=== PATIENT | female | born 1970 | race Caucasian/White ===

== ENCOUNTER → 2017-08-07 | Outpatient (CLI) | payer OTHER ==
[~2017-08-07] MED LIST: ATOR40TA78 PO; CHOL100012 PO; FENO48TA5 PO; LEVO137T2 PO; LEVO150T PO; will bring list DOS
== END | disposition home or self-care (01) ==
LOC: CFH 11:07
PROVIDERS: ATTEND Nurse Practitioner
DX: N26.1 Atrophy of kidney (terminal) (principal)
CPT/HCPCS: 76770

== ENCOUNTER → 2018-01-29 | Outpatient (CLI) | payer OTHER | LOC: CFH 07:48 | PROVIDERS: ATTEND Internal Medicine Nephrology | DX: N26.1 Atrophy of kidney (terminal) (principal); N18.3 Chronic kidney disease, stage 3 (moderate); D64.9 Anemia, unspecified; G89.4 Chronic pain syndrome; Z72.0 Tobacco use | CPT/HCPCS: 93975 ==

== ENCOUNTER → 2018-09-03 | Outpatient (CLI) | payer OTHER | END | disposition home or self-care (01) | LOC: CFH 07:51 | PROVIDERS: ATTEND Nurse Practitioner | DX: Z12.31 Encounter for screening mammogram for malignant neoplasm of breast (principal) | CPT/HCPCS: 77067 ==

== ENCOUNTER → 2018-10-08 | Outpatient (CLI) | payer OTHER | END | disposition home or self-care (01) | LOC: CFH 07:42 | PROVIDERS: ATTEND Nurse Practitioner | DX: R92.1 Mammographic calcification found on diagnostic imaging of breast (principal) | CPT/HCPCS: 77065; G0279 ==

== ENCOUNTER → 2021-04-12 | Outpatient (CLI) | payer OTHER ==
[~2021-04-12] MED LIST changes: +FENO48TA10 PO; -FENO48TA5 PO
== END | disposition home or self-care (01) ==
LOC: CFH 12:10
PROVIDERS: ATTEND Nurse Practitioner
DX: Z12.31 Encounter for screening mammogram for malignant neoplasm of breast (principal)
CPT/HCPCS: 77063; 77067